=== PATIENT | female | born 2000 | race Caucasian/White ===

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

== ENCOUNTER 2021-09-26 06:45 | Emergency (ER) | payer OTHER ==
[~2021-09-26] VITALS: Ht 165.1 cm; Wt 76.2 kg
[2021-09-26 06:53] VITALS: BP 129/79
--- NOTE | 2021-09-26 07:01 | NUR ---
Dr. Hayden examining patient.
[2021-09-26] MEDS ORDERED: ACETAMINOPHEN 325 MG TAB PO ONE (07:05)
[2021-09-26 07:20] VITALS: BP 129/79
--- NOTE | 2021-09-26 07:20 | NUR ---
Patient discharged with v/s stable. Written and verbal after care instructions given and explained. Patient verbalized understanding. Ambulatory with steady gait. All questions addressed prior to discharge. Advised to follow up with PMD.
== END 2021-09-26 07:20 | disposition home or self-care (01) ==
LOC: MED 06:45
DX: S39.012A Strain of muscle, fascia and tendon of lower back, initial encounter (principal); M54.2 Cervicalgia; K21.9 Gastro-esophageal reflux disease without esophagitis; V43.52XA Car driver injured in collision with other type car in traffic accident, initial encounter; Y93.89 Activity, other specified; Y92.410 Unspecified street and highway as the place of occurrence of the external cause; Y99.8 Other external cause status
CPT/HCPCS: 99282

== ENCOUNTER 2022-09-08 12:38 | Emergency (ER) | payer OTHER ==
[~2022-09-08] VITALS: Ht 167.6 cm; Wt 84.8 kg
[2022-09-08 14:38] VITALS: BP 120/71
--- NOTE | 2022-09-08 14:47 | NUR ---
AMB. TO CHAIR C WITH NO DISTRESS
[2022-09-08] MEDS ORDERED: KETOROLAC 30 MG/ML VIAL IM ONE (15:00)
[2022-09-08] MEDS ORDERED: NAPR-1704 PO (15:13)
[2022-09-08 15:27] VITALS: BP 112/70
== END 2022-09-08 15:27 | disposition home or self-care (01) ==
LOC: MED 12:38
DX: M94.0 Chondrocostal junction syndrome [Tietze] (principal); R07.89 Other chest pain; K29.70 Gastritis, unspecified, without bleeding; F17.210 Nicotine dependence, cigarettes, uncomplicated; Z71.6 Tobacco abuse counseling; Z79.899 Other long term (current) drug therapy
CPT/HCPCS: 71045; 93005; 96372; 99283; J1885